=== PATIENT | male | born 1965 | race Caucasian/White ===

== ENCOUNTER 2020-08-14 01:07 | Emergency (ER) | payer OTHER ==
[~2020-08-14] VITALS: Ht 165.1 cm; Wt 68.0 kg
[2020-08-14 02:00] VITALS: BP 147/88
[2020-08-14] MEDS ORDERED: CLINDAMYCIN HC300 MG PO (02:07)
[2020-08-14] MEDS ORDERED: NOHOMEMEDICATIONS (02:59)
== END 2020-08-14 02:15 | disposition home or self-care (01) ==
LOC: ER 01:07
DX: S60.512A Abrasion of left hand, initial encounter (principal); L03.114 Cellulitis of left upper limb; Z59.0 Homelessness; Y04.2XXA Assault by strike against or bumped into by another person, initial encounter; Y93.89 Activity, other specified; Y92.89 Other specified places as the place of occurrence of the external cause; Y99.8 Other external cause status

== ENCOUNTER 2020-08-31 13:12 | Emergency (ER) | payer OTHER ==
[~2020-08-31] VITALS: Ht 175.3 cm; Wt 81.7 kg
[~2020-08-31 13:12] MED LIST: CLINDAMYCIN HC300 MG PO; NOHOMEMEDICATIONS
[2020-08-31 13:33] VITALS: BP 96/63
[2020-08-31] MEDS ORDERED: CLEOCIN HCL150 MG PO (13:57)
[2020-08-31 14:10] LABS: URINE BILIRUBIN NEGATIVE (Negative); URINE BLOOD NEGATIVE (Negative); URINE CLARITY CLEAR; URINE COLOR YELLOW; URINE GLUCOSE-RANDOM* NEGATIVE (Negative); URINE KETONES NEGATIVE (Negative); URINE LEUKOCYTES-REFLEX NEGATIVE (Negative); URINE NITRITE-REFLEX NEGATIVE (Negative); URINE PROTEIN (DIPSTICK) NEGATIVE (Negative); URINE SPECIFIC GRAVITY 1.015 (1.005-1.035); URINE UROBILINOGEN 0.2 E.U./dl (0.2-1.0)
== END 2020-08-31 14:45 | disposition home or self-care (01) ==
LOC: ER 13:12
PROVIDERS: Physician Assistant
DX: L03.311 Cellulitis of abdominal wall (principal)